=== PATIENT | male | born 1960 | race Hispanic/Latino ===

== ENCOUNTER → 2019-03-10 | Outpatient (CLI) | payer OTHER | END | disposition home or self-care (01) | LOC: OIH 14:26 | PROVIDERS: ATTEND Internal Medicine Cardiovascular Disease | DX: Z12.31 Encounter for screening mammogram for malignant neoplasm of breast (principal) | CPT/HCPCS: 75571 ==

== ENCOUNTER → 2023-01-22 | Outpatient (CLI) | payer BC ==
[~2023-01-22] MED LIST: ASPI-891 PO; ATOR20TA65 PO; BUDE10.2 IH; ENAL-87 PO; FLUT16H NASAL; IOHEXOL 350 MG/ML 100ML INFUS..BTL IV ONE; LORA10TA7 PO; METO25 PO; METOPROLOL TARTRATE 1 MG/ML 5ML VIAL IV ONE; MULT-1258 PO
== END | disposition home or self-care (01) ==
LOC: RAH 07:52
PROVIDERS: ATTEND Internal Medicine Cardiovascular Disease
DX: I48.0 Paroxysmal atrial fibrillation (principal); R94.39 Abnormal result of other cardiovascular function study
CPT/HCPCS: 75574; J3490; Q9967